=== PATIENT | female | born 1985 | race Caucasian/White ===

== ENCOUNTER 2016-11-15 10:49 | Emergency (ER) | payer OTHER ==
--- NOTE | 2016-11-15 11:34 | PDOC ---
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 The patient states that she passed by while a hip was receiving pulse irrigation (during a total hip replacement) and she was splashed in the face getting fluid in her eye. She denies pain, visual changes. She does not know the past history of the source patient. The patient is up to date with all required vaccinations. Past History - Past Medical History Allergies/Adverse Reactions: Allergies Allergy/AdvReac Type Severity Reaction Status Date / Time metoclopramide HCl AdvReac Verified 04/26/16 19:07 [From [facility]] Home Medications: Ambulatory Orders Hydrocodone/Acetaminophen [Vicodin 5-300 mg Tablet] 1 - 2 each PO Q4H PRN #20 tablet MDD 8 04/26/16 Ondansetron [Zofran Odt -] 4 mg SL TID PRN #12 od.tablet 04/26/16 - Psycho/Social/Smoking Cessation Hx Anxiety: No Suicidal Ideation: No Smoking History: Never smoked Have you smoked in the past 12 months: No Hx Alcohol Use: Yes (OCCAS.) Drug/Substance Use Hx: No Substance Use Type: None Review of Systems - Review of Systems Able to Perform ROS?: Yes Is the patient limited Setswana proficient: No Constitutional: No: Symptoms Reported HEENTM: Yes: See HPI Respiratory: No: Symptoms reported Cardiac (ROS): No: Symptoms Reported ABD/GI: No: Symptoms Reported : No: Symptoms Reported Musculoskeletal: No: Symptoms Reported Integumentary: No: Symptoms Reported Neurological: No: Symptoms reported *Physical Exam - Physical Exam Comments: 11/15/16 11:29 GENERAL: Well developed, well nourished. Awake and alert. No acute distress. HEENT: PEERL, EOMI. There are no scleral lesions or foreign bodies noted. Medical Decision Making - Medical Decision Making 11/15/16 11:30 31 y/o female s/p body fluid exposure. Her eye was copiously irrigated in the ED. I have advised her to follow-up with occupational health. Source patient should be tested for hepatitis C and HIV. No post-exposure prophylaxis at this time. *DC/Admit/Observation/Transfer Diagnosis at time of Disposition: Exposure to blood or body fluid - Discharge Dispostion Disposition: HOME Condition at time of disposition: Stable Admit: No - Patient Instructions Printed Discharge Instructions: DI for Accidental Exposure to Body Fluids Additional Instructions: Follow-up with occupational health/employee health today stat. Return to the ED as needed.
[2016-11-15 11:57] VITALS: BP 125/81; PULSE 68; TEMP 98.3; BMI 26.5
[2016-11-15 12:34] LABS: BASOPHIL 1.4 % (0-2.0); EOSINOPHIL 1.7 % (0-4.5); MCH 30.6 pg (25.7-33.7); MCHC 34.1 g/dl (32.0-36.0); MEAN CELL VOLUME 89.9 fl (80-96); MEAN PLT VOLUME 7.2 fl (7.5-11.1); PLATELET COUNT 296 K/MM3 (134-434); RDW 12.1 % (11.6-15.6); WHITE BLOOD COUNT 6.4 K/mm3 (4.0-10.8)
[2016-11-15 12:48] LABS: ALBUMIN 4.4 g/dl (3.5-5.0); ALK PHOS 34 U/L (32-92); ANION GAP 8 (8-16); BILIRUBIN,TOTAL 0.5 mg/dl (0.2-1.0); CALCIUM 9.4 mg/dl (8.4-10.2); CO2 25 mmol/L (22-28); COCKROFT - GAULT 123.9215; CREATININE 0.7 mg/dl (0.6-1.3); GLUCOSE,RANDOM 100 mg/dl (74-106); SGOT/AST 22 U/L (10-42); SGPT/ALT 23 U/L (10-40); TOT PROT 7.2 g/dl (6.4-8.3)
[2016-11-15 14:47] LABS: HIV 1 & 2 AB NEGATIVE; HIV 1 AGp24 NEGATIVE
[2016-11-16 10:10] LABS: HEP B SURFACE AB Reactive (.)
== END 2016-11-15 12:18 | disposition home or self-care (01) ==
LOC: FER 10:49
DX: Z77.21 Contact with and (suspected) exposure to potentially hazardous body fluids (principal); X58.XXXA Exposure to other specified factors, initial encounter; Y93.89 Activity, other specified; Y92.234 Operating room of hospital as the place of occurrence of the external cause; Y99.0 Civilian activity done for income or pay
CPT/HCPCS: 36415; 80053; 82977; 85025; 86704; 86706; 87340; 87389; 99282-25

== ENCOUNTER 2019-05-16 10:47 | Day surgery (SDC) | payer OTHER ==
[2019-05-15 16:33] VITALS: BMI 23.0
[2019-05-16] MEDS ORDERED: MIDAZOLAM HCL 2 MG/2 ML SINGLE DOSE VIAL ONE ×2 (11:53→12:57)
[2019-05-16] MEDS ORDERED: ROPIVACAINE HCL 0.5% 30ML VIAL ONE (11:53)
[2019-05-16] MEDS ORDERED: BUPIVACAINE HCL/PF 2.5 MG/ML - 30 ML VIAL IJ ONE (11:59)
[2019-05-16] MEDS ORDERED: SUCCINYLCHOLINE CHLORIDE 200 MG/10 ML SYRINGE ONE (12:32)
[2019-05-16] MEDS ORDERED: PROPOFOL 20 ML ONE ×4 (12:32)
[2019-05-16] MEDS ORDERED: DEXAMETHASONE SOD PHOSPHATE 4 MG/1 ML VIAL ONE ×2 (12:32→13:56)
[2019-05-16] MEDS ORDERED: ONDANSETRON 4 MG/2 ML VIAL ONE ×2 (12:32→13:56)
[2019-05-16] MEDS ORDERED: ceFAZolin SODIUM 1 GM VIAL ONE (13:01)
[2019-05-16] MEDS ORDERED: ACETAMINOPHEN 325 MG TABLET (FP) PO PRN (14:48)
[2019-05-16] MEDS ORDERED: oxyCODONE HCL 5 MG TABLET PO PRN ×2 (14:48)
[2019-05-16] MEDS ORDERED: ONDANSETRON 4 MG/2 ML VIAL IVPUSH PRN (14:48)
[2019-05-16] MEDS ORDERED: LACTATED RINGERS SOLUTION 1,000 ML IV SCH (15:00)
[2019-05-16 15:46] VITALS: TEMP 98.4
[2019-05-16 15:48] VITALS: BP 111/66; PULSE 78
--- NOTE | 2019-05-21 15:51 | OP ---
DATE OF OPERATION: 05/16/2019 PREOPERATIVE DIAGNOSIS: Left comminuted, intraarticular, displaced distal radius fracture. POSTOPERATIVE DIAGNOSIS: Left comminuted, intraarticular, displaced distal radius fracture. OPERATIVE PROCEDURE: Left distal radius open reduction and internal fixation with internal fixation of 3 or more fragments. SURGEON: Jenn Jain MD LABORATORY ADMINISTRATIVE DIRECTOR: JASMIN Van ANESTHESIA: Regional. COMPLICATIONS: None. ESTIMATED BLOOD LOSS: Minimal. INDICATION FOR PROCEDURE: The patient is a 34-year-old female with the above finding indicated for operative treatment. The risks, benefits, and alternatives were discussed with her at length, and proper informed consent was obtained. DESCRIPTION OF PROCEDURE: After proper identification of the patient and correct operative site, patient was brought to the operating room and placed supine on the table. All prominences were well padded. Sedation and regional anesthesia were given. Left upper extremity was prepped and draped in usual sterile fashion. A well-padded tourniquet was placed as well as a sterile prep. Esmarch bandage was used to exsanguinate the left upper extremity. Tourniquet was inflated to 250 mmHg. A longitudinal incision was made over the flexor carpi radialis tendon. Incision was taken sharply through the skin, with blunt and sharp dissection through subcutaneous tissues. The flexor carpi radialis tendon along with the contents of the carpal canal was bluntly and gently retracted in an ulnarward direction for the remainder of the procedure. Pronator quadratus was found to be entrapped within the fracture site and was divided longitudinally and elevated off the distal radius. Comminuted fracture was noted, and any hematoma was removed from the fracture site, and the fracture was able to be reduced except the pole of the brachial radialis made complete reduction of the radial styloid fracture impossible. Therefore, a brachial radialis subperiosteal tenotomy was performed. This allowed complete reduction of the fracture into an anatomic alignment. This was then held with an Acumed AccuLock II distal radius plate with distal locking screws and proximal bicortical non-locking screws. This provided secure, stable fixation of fracture and anatomic alignment confirmed radiographically in multiple planes. The scapholunate interval and distal radial and ulnar joints were stressed and found to be stable. Therefore, no further intervention was needed. The wound was irrigated and repaired in layers including the pronator quadratus with 4-0 Vicryl and 4-0 Monocryl suture. Willi-Strips and sterile dressing at the wrist bend were placed. Patient was reversed from anesthesia and brought to recovery in stable condition. She tolerated procedure well. Herberth Pineda, the credentialing assistant, was integral throughout the procedure. Procedure could not have been performed without a skilled operative credentialing assistant. JENN JAIN M.D. [id number]
== END 2019-05-16 15:35 | disposition home or self-care (01) ==
LOC: FASU 10:47
PROVIDERS: ATTEND Orthopaedic Surgery Hand Surgery
PROC: 0PSJ04Z Reposition Left Radius with Internal Fixation Device, Open Approach (ICD-10-PCS; principal; 2019-05-16 13:14)
DX: S52.502A Unspecified fracture of the lower end of left radius, initial encounter for closed fracture (principal); X58.XXXA Exposure to other specified factors, initial encounter; Y93.9 Activity, unspecified; Y92.9 Unspecified place or not applicable
CPT/HCPCS: 73110-TC-LT-FY; 84703